=== PATIENT | female | born 1985 | race Caucasian/White ===

== ENCOUNTER 2020-06-08 21:32 | Inpatient (IN) | payer OTHER ==
[2020-06-08] MEDS ORDERED: Calcium Carbonate 500 MG ChewTAB PO PRN (22:22)
[2020-06-08] MEDS ORDERED: HYDROcodone/Acetaminophen 5/325 mg Tablet PO PRN (22:22)
[2020-06-08] MEDS ORDERED: HumaLOG 300 UNITS/3 ML VIAL SC PRN (22:22)
[2020-06-08] MEDS ORDERED: Acetaminophen 325 MG TAB PO PRN (22:22)
[2020-06-08] MEDS ORDERED: Dextrose 50% Abboject 50 ML SYRINGE SLOW IVP PRN (22:22)
[2020-06-08] MEDS ORDERED: Dextrose 5% in Water 1,000 ML IV PRN (22:22)
[2020-06-08] MEDS ORDERED: Lactated Ringer's 1,000 ML IV SCH (22:30)
[2020-06-08] MEDS ORDERED: Dicyclomine 10 MG CAP PO SCH (22:45)
[2020-06-08] MEDS ORDERED: Pantoprazole 40 MG VIAL IVP SCH (22:45)
[2020-06-08] MEDS ORDERED: Promethazine HCl 12.5 MG in Sodium Chloride 0.9% 50 ML IVPB PRN (22:50)
[2020-06-08] MEDS ORDERED: Metoclopramide HCl 10 MG/2 ML VIAL IVP PRN (22:50)
[2020-06-09] MEDS: metroNIDAZOLE 500 MG in Premix Bag 1 BAG IVPB SCH ×3 (01:19→14:41)
[2020-06-09] MEDS: Morphine 4 MG/ML VIAL SLOW IVP PRN ×3 (06:00→14:40)
[2020-06-09 06:27] LABS: #Eosinphils 0.2 10x3/uL (0.0-0.5); #Monocytes 0.7 10x3/uL (0.0-1.1); #Neutrophils 6.4 10x3/uL (1.5-8.4); %Basophils 0.4 % (0.0-2.0); %Eosinophils 1.6 % (0.0-6.0); %Lymphocytes 29.6 % (18.0-47.0); %Monocytes 6.2 % (0.0-10.0); %Neutrophils 61.3 % (40.0-75.0); Hemoglobin 11.3 g/dL (12.0-15.5); Mean Corpuscular HGB CONC 31.9 g/dL (32.0-36.0); Mean Corpuscular Hemoglobin 30.4 pg (27.0-33.0); Mean Corpuscular Volume 95.2 fl (81.6-98.3); Mean Platelet Volume 10.1 fl (7.4-10.4); Platelet Count 239 10x3/uL (150-450); RBC Distribution Width 12.5 % (11.5-14.5); Red Blood Cell (RBC) Count 3.72 10x6/uL (3.90-5.03); White Blood Cell (WBC) Count 10.4 10x3/uL (3.5-10.5)
[2020-06-09 06:53] LABS: ALT (SGPT) 19 U/L (8-55); AST (SGOT) 14 U/L (5-34); Albumin 3.4 g/dL (3.5-5.0); Alkaline Phosphatase 78 U/L (40-110); Anion Gap 14 mmol/L (10-20); BUN (Urea Nitrogen) 15 mg/dL (7.0-18.7); Bilirubin, Total 0.3 mg/dL (0.2-1.2); CRP (Inflammatory) 0.64 mg/dL (= or < 0.5); Calc. Creatinine Clearance 163 mL/min (70-130); Calcium 8.4 mg/dL (7.8-10.44); Carbon Dioxide 21 mmol/L (22-29); Chloride 109 mmol/L (98-107); Globulin 2.9 g/dL (2.4-3.5); Glucose 195 mg/dL (70-105); Lipase 21 U/L (8-78); Potassium 3.8 mmol/L (3.5-5.1); Protein, Total 6.3 g/dL (6.0-8.3); Sodium 140 mmol/L (136-145)
[2020-06-09 08:58] LABS: Hemoglobin A1c 7.8 % (4.0-6.0)
[2020-06-09] MEDS: Pantoprazole 40 MG VIAL IVP SCH ×2 (09:09→19:55)
[2020-06-09] MEDS: Metamucil PACK PO SCH (09:10)
[2020-06-09] MEDS: Dicyclomine 10 MG CAP PO SCH ×3 (09:10→22:25)
[2020-06-09 16:18] LABS: SARS-CoV-2 PCR by NAA Not Detected (NotDetected)
[2020-06-10] MEDS: Pantoprazole 40 MG VIAL IVP SCH ×2 (10:11→10:54)
[2020-06-10] MEDS: Dicyclomine 10 MG CAP PO SCH ×2 (10:11→14:25)
[2020-06-10] MEDS: Metamucil PACK PO SCH (10:12)
[2020-06-10] MEDS ORDERED: Acetaminophen 325 MG TAB PO SCH (12:00)
[2020-06-10] MEDS ORDERED: Ketorolac Tromethamine 30 MG/ML VIAL IVP SCH (12:00)
[2020-06-10 16:16] VITALS: BP 124/76; TEMP 98.8
== END 2020-06-10 17:40 | disposition home or self-care (01) | DRG 392 ==
LOC: CSHTELE 21:32
PROVIDERS: ADMIT Student in an Organized Health Care Education/Training Program; ATTEND Family Medicine
DX: R10.32 Left lower quadrant pain (principal); Z68.43 Body mass index [BMI] 50.0-59.9, adult; Z20.822 Contact with and (suspected) exposure to COVID-19; E66.01 Morbid (severe) obesity due to excess calories; M79.2 Neuralgia and neuritis, unspecified; I10 Essential (primary) hypertension; K52.9 Noninfective gastroenteritis and colitis, unspecified; G89.29 Other chronic pain; E11.65 Type 2 diabetes mellitus with hyperglycemia; D72.829 Elevated white blood cell count, unspecified; K57.30 Diverticulosis of large intestine without perforation or abscess without bleeding; Z91.041 Radiographic dye allergy status; Z88.2 Allergy status to sulfonamides; Z88.8 Allergy status to other drugs, medicaments and biological substances; Z91.018 Allergy to other foods; Z79.4 Long term (current) use of insulin; Z79.891 Long term (current) use of opiate analgesic; Z90.49 Acquired absence of other specified parts of digestive tract; Z90.710 Acquired absence of both cervix and uterus; Z87.891 Personal history of nicotine dependence; Z85.41 Personal history of malignant neoplasm of cervix uteri
CPT/HCPCS: 36415; 36416; 72146; 72148; 80053; 83036; 83630; 83690; 85025; 85652; 86140; 87045; 87046; 87324; 87427; 87449; 87635; C9113; J1885; J1956; J2270; J2550; U0003; U0005

== ENCOUNTER 2020-06-23 18:08 | Emergency (ER) | payer OTHER ==
[2020-06-23] MEDS ORDERED: Acetaminophen 500 MG TAB ONE (19:45)
== END 2020-06-23 20:04 | disposition home or self-care (01) ==
LOC: CSHERS 18:08
DX: I80.9 Phlebitis and thrombophlebitis of unspecified site (principal); I10 Essential (primary) hypertension; E11.9 Type 2 diabetes mellitus without complications; F17.210 Nicotine dependence, cigarettes, uncomplicated; Z79.899 Other long term (current) drug therapy

== ENCOUNTER 2021-10-17 20:42 | Emergency (ER) | payer OTHER ==
[2021-10-17] MEDS ORDERED: Morphine 4 MG/ML VIAL ONE ×2 (21:01→23:24)
[2021-10-17] MEDS ORDERED: Ondansetron PF 4 MG/2 ML Vial ONE (21:02)
[2021-10-17 21:09] LABS: #Basophils 0.1 10x3/uL (0.0-0.2); #Eosinphils 0.1 10x3/uL (0.0-0.5); #Monocytes 1.2 10x3/uL (0.0-1.1); #Neutrophils 10.4 10x3/uL (1.5-8.4); %Basophils 0.6 % (0.0-2.0); %Eosinophils 0.6 % (0.0-6.0); %Lymphocytes 26.9 % (18.0-47.0); %Monocytes 7.2 % (0.0-10.0); %Neutrophils 64.2 % (40.0-75.0); Hemoglobin 14.5 g/dL (12.0-15.5); Mean Corpuscular HGB CONC 34.6 g/dL (32.0-36.0); Mean Corpuscular Hemoglobin 31.3 pg (27.0-33.0); Mean Corpuscular Volume 90.5 fl (81.6-98.3); Mean Platelet Volume 10.3 fl (7.4-10.4); Platelet Count 300 10x3/uL (150-450); Red Blood Cell (RBC) Count 4.63 10x6/uL (3.90-5.03); White Blood Cell (WBC) Count 16.2 10x3/uL (3.5-10.5)
[2021-10-17 21:24] LABS: ALT (SGPT) 32 U/L (8-55); AST (SGOT) 22 U/L (5-34); Albumin 4.2 g/dL (3.5-5.0); Alkaline Phosphatase 99 U/L (40-110); Anion Gap 15 mmol/L (10-20); BUN (Urea Nitrogen) 16 mg/dL (7.0-18.7); Bilirubin, Total 0.5 mg/dL (0.2-1.2); Calc. Creatinine Clearance 0 mL/min (70-130); Calcium 9.4 mg/dL (7.8-10.44); Carbon Dioxide 22 mmol/L (22-29); Chloride 101 mmol/L (98-107); Estimated GFR 80; Globulin 3.2 g/dL (2.4-3.5); Glucose 450 mg/dL (70-105); Lipase 43 U/L (8-78); Potassium 4.3 mmol/L (3.5-5.1); Protein, Total 7.4 g/dL (6.0-8.3); Sodium 134 mmol/L (136-145)
[2021-10-17] MEDS ORDERED: diphenhydrAMINE 50 MG/ML VIAL ONE (21:50)
[2021-10-17 23:51] LABS: Bilirubin Neg (Negative); Blood, Urine Negative (Negative); Clarity Clear (Clear); Glucose, Urine (Dipstick) >=1000 mg/dL (Negative); Ketone, Urine Negative (Negative); Leukocyte Negative (Negative); Nitrite Negative (Negative); Protein, Urine (Dipstick) Negative (Neg-Trace); Specific Gravity, Urine 1.015 (1.002-1.036); Urobilinogen Normal mg/dL (Less than 2)
[2021-10-18 00:10] LABS: Lactic Acid 1.9 mmol/L (0.5-2.2)
[2021-10-18] MEDS ORDERED: Metoclopramide HCl 10 MG/2 ML VIAL ONE (00:11)
[2021-10-18] MEDS ORDERED: Morphine 4 MG/ML VIAL ONE (01:28)
== END 2021-10-18 02:32 | disposition short-term general hospital (02) ==
LOC: CSHERS 20:42
DX: R10.32 Left lower quadrant pain (principal); I10 Essential (primary) hypertension; E11.9 Type 2 diabetes mellitus without complications; Z87.891 Personal history of nicotine dependence
CPT/HCPCS: 74176; 80053; 81003; 83605; 83690; 85025; 96361; 96365; 96375; 96376; J1200; J2270; J2405; J2765

== ENCOUNTER 2021-11-25 19:17 | Observation (INO) | payer OTHER ==
[2021-11-25] MEDS ORDERED: Albuterol Sulfate 2.5 mg/3 ml Neb ONE (19:57)
[2021-11-25 20:22] LABS: #Basophils 0.1 10x3/uL (0.0-0.2); #Eosinphils 0.1 10x3/uL (0.0-0.5); #Monocytes 0.9 10x3/uL (0.0-1.1); #Neutrophils 10.5 10x3/uL (1.5-8.4); %Basophils 0.5 % (0.0-2.0); %Eosinophils 0.7 % (0.0-6.0); %Lymphocytes 27.5 % (18.0-47.0); %Monocytes 5.7 % (0.0-10.0); %Neutrophils 64.9 % (40.0-75.0); Hemoglobin 14.7 g/dL (12.0-15.5); Mean Corpuscular HGB CONC 34.8 g/dL (32.0-36.0); Mean Corpuscular Hemoglobin 31.3 pg (27.0-33.0); Mean Corpuscular Volume 90.2 fl (81.6-98.3); Mean Platelet Volume 10.3 fl (7.4-10.4); Platelet Count 327 10x3/uL (150-450); RBC Distribution Width 11.9 % (11.5-14.5); Red Blood Cell (RBC) Count 4.69 10x6/uL (3.90-5.03); White Blood Cell (WBC) Count 16.1 10x3/uL (3.5-10.5)
[2021-11-25] MEDS ORDERED: Ondansetron PF 4 MG/2 ML Vial ONE (20:25)
[2021-11-25] MEDS ORDERED: Morphine 4 MG/ML VIAL ONE ×2 (20:25→22:05)
[2021-11-25 20:36] LABS: ALT (SGPT) 22 U/L (8-55); AST (SGOT) 20 U/L (5-34); Albumin 4.4 g/dL (3.5-5.0); Alkaline Phosphatase 96 U/L (40-110); Anion Gap 17 mmol/L (10-20); BUN (Urea Nitrogen) 13 mg/dL (7.0-18.7); Bilirubin, Total 0.6 mg/dL (0.2-1.2); Calc. Creatinine Clearance 0 mL/min (70-130); Calcium 9.9 mg/dL (7.8-10.44); Carbon Dioxide 23 mmol/L (22-29); Chloride 98 mmol/L (98-107); Estimated GFR 89; Globulin 3.4 g/dL (2.4-3.5); Glucose 330 mg/dL (70-105); Lipase 32 U/L (8-78); Potassium 4.1 mmol/L (3.5-5.1); Protein, Total 7.8 g/dL (6.0-8.3); Sodium 134 mmol/L (136-145)
[2021-11-25 20:46] LABS: BHCG - Serum Negative (NEGATIVE); Pregs Control Background? CLEAR/WHITE (CLR/WHITE); Pregs Control Bar Appear? YES (CONTROL BAR)
[2021-11-25] MEDS ORDERED: Ketorolac Tromethamine 30 MG/ML VIAL ONE (22:06)
[2021-11-25] MEDS ORDERED: Piperacillin/Tazobactam 4.5 GM VIAL ONE (22:06)
[2021-11-25] MEDS ORDERED: Acetaminophen 325 MG TAB PO PRN (22:22)
[2021-11-25] MEDS ORDERED: Dextrose 5% in Water 1,000 ML IV PRN (22:22)
[2021-11-25] MEDS ORDERED: Calcium Carbonate 500 MG ChewTAB PO PRN (22:22)
[2021-11-25] MEDS ORDERED: Dextrose 50% Abboject 50 ML SYRINGE SLOW IVP PRN (22:22)
[2021-11-25] MEDS ORDERED: Zolpidem Tartrate 5 MG TAB PO PRN (22:22)
[2021-11-25] MEDS ORDERED: Guaifenesin DM 100-10/5 ML UDCUP PO PRN (22:22)
[2021-11-25 23:13] LABS: Lactic Acid 1.3 mmol/L (0.5-2.2)
[2021-11-26 00:32] LABS: SARS-CoV-2 NAA Rapid Test Not Detected (NotDetected)
[2021-11-26] MEDS ORDERED: Gabapentin 300 MG CAP PO SCH (02:30)
[2021-11-26] MEDS ORDERED: Lactated Ringer's 500 ML IV SCH (03:00)
[2021-11-26] MEDS ORDERED: Lantus 1000 UNITS/10 ML VIAL SC SCH (03:00)
[2021-11-26] MEDS ORDERED: Lactated Ringer's 1,000 ML IV SCH (03:00)
[2021-11-26] MEDS ORDERED: Gabapentin 300 MG CAP ONE (03:42)
[2021-11-26 03:49] LABS: #Basophils 0.1 10x3/uL (0.0-0.2); #Eosinphils 0.1 10x3/uL (0.0-0.5); #Monocytes 0.9 10x3/uL (0.0-1.1); %Basophils 0.4 % (0.0-2.0); %Monocytes 6.2 % (0.0-10.0); %Neutrophils 60.9 % (40.0-75.0); Hemoglobin 13.2 g/dL (12.0-15.5); Mean Corpuscular HGB CONC 34.2 g/dL (32.0-36.0); Mean Corpuscular Hemoglobin 31.2 pg (27.0-33.0); Mean Corpuscular Volume 91.3 fl (81.6-98.3); Mean Platelet Volume 10.4 fl (7.4-10.4); Platelet Count 287 10x3/uL (150-450); Red Blood Cell (RBC) Count 4.23 10x6/uL (3.90-5.03); White Blood Cell (WBC) Count 14.7 10x3/uL (3.5-10.5)
[2021-11-26 04:02] LABS: Anion Gap 16 mmol/L (10-20); BUN (Urea Nitrogen) 17 mg/dL (7.0-18.7); Calc. Creatinine Clearance 0 mL/min (70-130); Carbon Dioxide 21 mmol/L (22-29); Chloride 102 mmol/L (98-107); Estimated GFR 69; Glucose 318 mg/dL (70-105); Sodium 135 mmol/L (136-145)
[2021-11-26] MEDS ORDERED: Morphine 2 MG/ML VIAL ONE ×2 (04:05→09:40)
[2021-11-26] MEDS ORDERED: Racepinephrine 2.25% 0.5 ML NEB ONE (05:26)
[2021-11-26] MEDS ORDERED: tiZANidine HCl 4 MG TAB PO SCH (09:00)
[2021-11-26] MEDS: Morphine 2 MG/ML VIAL SLOW IVP PRN ×2 (09:50→15:42)
[2021-11-26] MEDS ORDERED: traMADol HCl 50 MG TAB ONE (10:35)
[2021-11-26] MEDS: Dicyclomine 10 MG CAP PO SCH ×3 (10:45→19:49)
[2021-11-26] MEDS: traMADol HCl 50 MG TAB PO SCH ×2 (10:45→22:50)
[2021-11-26 12:49] LABS: Hemoglobin A1c 10.6 % (4.0-6.0)
[2021-11-26] MEDS ORDERED: Ketorolac Tromethamine 30 MG/ML VIAL ONE (14:06)
[2021-11-26] MEDS: Ketorolac Tromethamine 30 MG/ML VIAL IVP SCH ×2 (14:15→21:07)
[2021-11-26] MEDS: Lidocaine 5% Patch TD SCH (14:15)
[2021-11-26] MEDS: Gabapentin 300 MG CAP PO SCH ×2 (15:45→21:09)
[2021-11-26] MEDS: tiZANidine HCl 4 MG TAB PO SCH ×2 (15:46→21:09)
[2021-11-26] MEDS: HYDROcodone/Acetaminophen 5/325 mg Tablet PO PRN (17:40)
[2021-11-26] MEDS: HumaLOG 300 UNITS/3 ML VIAL SC PRN (17:47)
[2021-11-26 18:06] VITALS: BMI 47.5
[2021-11-26] MEDS ORDERED: Gabapentin 400 MG CAP PO SCH (21:00)
[2021-11-27] MEDS: Transdermal Patch Removal TOP SCH
[2021-11-27] MEDS: Ketorolac Tromethamine 30 MG/ML VIAL IVP SCH ×4 (01:00→10:27)
[2021-11-27] MEDS: HumaLOG 300 UNITS/3 ML VIAL SC PRN ×3 (01:20→23:43)
[2021-11-27] MEDS: Morphine 2 MG/ML VIAL SLOW IVP PRN ×3 (01:51→18:26)
[2021-11-27] MEDS: Dicyclomine 10 MG CAP PO SCH ×3 (01:57→18:23)
[2021-11-27] MEDS: Lantus 1000 UNITS/10 ML VIAL SC SCH (08:29)
[2021-11-27] MEDS: Gabapentin 300 MG CAP PO SCH ×3 (08:30→20:49)
[2021-11-27] MEDS: traMADol HCl 50 MG TAB PO SCH ×2 (08:31→20:50)
[2021-11-27] MEDS: tiZANidine HCl 4 MG TAB PO SCH ×3 (08:31→20:49)
[2021-11-27] MEDS ORDERED: Lidocaine 5% Patch TD SCH (09:00)
[2021-11-27] MEDS ORDERED: FLU VACC QS2022-23(6MOS UP)/PF 60 MCG/0.5 ML SYRINGE IM ONE (09:00)
[2021-11-27] MEDS: Lidocaine 5% Patch TD SCH (14:22)
[2021-11-27] MEDS: HYDROcodone/Acetaminophen 5/325 mg Tablet PO PRN ×2 (14:22→22:33)
[2021-11-28] MEDS: Transdermal Patch Removal TOP SCH (00:20)
[2021-11-28] MEDS: Dicyclomine 10 MG CAP PO SCH ×2 (02:53→09:14)
[2021-11-28] MEDS: Lantus 1000 UNITS/10 ML VIAL SC SCH (05:27)
[2021-11-28] MEDS: Morphine 2 MG/ML VIAL SLOW IVP PRN (05:34)
[2021-11-28 06:52] LABS: #Eosinphils 0.1 10x3/uL (0.0-0.5); #Monocytes 0.4 10x3/uL (0.0-1.1); #Neutrophils 3.6 10x3/uL (1.5-8.4); %Basophils 0.5 % (0.0-2.0); %Eosinophils 1.4 % (0.0-6.0); %Lymphocytes 44.4 % (18.0-47.0); %Monocytes 5.4 % (0.0-10.0); %Neutrophils 47.8 % (40.0-75.0); Hemoglobin 12.8 g/dL (12.0-15.5); Mean Corpuscular HGB CONC 33.1 g/dL (32.0-36.0); Mean Corpuscular Hemoglobin 31.3 pg (27.0-33.0); Mean Corpuscular Volume 94.6 fl (81.6-98.3); Mean Platelet Volume 10.2 fl (7.4-10.4); Platelet Count 264 10x3/uL (150-450); RBC Distribution Width 11.9 % (11.5-14.5); Red Blood Cell (RBC) Count 4.09 10x6/uL (3.90-5.03); White Blood Cell (WBC) Count 7.6 10x3/uL (3.5-10.5)
[2021-11-28 07:00] LABS: Anion Gap 16 mmol/L (10-20); BUN (Urea Nitrogen) 12 mg/dL (7.0-18.7); Calc. Creatinine Clearance 167 mL/min (70-130); Carbon Dioxide 25 mmol/L (22-29); Chloride 106 mmol/L (98-107); Estimated GFR 89; Glucose 191 mg/dL (70-105); Potassium 3.9 mmol/L (3.5-5.1); Sodium 143 mmol/L (136-145)
[2021-11-28] MEDS: Gabapentin 300 MG CAP PO SCH (07:57)
[2021-11-28] MEDS: tiZANidine HCl 4 MG TAB PO SCH (07:58)
[2021-11-28] MEDS: traMADol HCl 50 MG TAB PO SCH (07:58)
[2021-11-28] MEDS: HYDROcodone/Acetaminophen 5/325 mg Tablet PO PRN (09:14)
[2021-11-28 10:13] VITALS: BP 141/90; TEMP 97.7
== END 2021-11-28 10:40 | disposition home or self-care (01) ==
LOC: CSHERS 19:17 → INTOOBSV 22:22 → CSHERHOLD 22:22 → UNDOADMIN 11-26 01:24 → CSHTELE 11-26 13:53
PROVIDERS: ADMIT Student in an Organized Health Care Education/Training Program; ATTEND Family Medicine
DX: R65.10 Systemic inflammatory response syndrome (SIRS) of non-infectious origin without acute organ dysfunction (principal); E87.20 Acidosis, unspecified; K52.9 Noninfective gastroenteritis and colitis, unspecified; K57.30 Diverticulosis of large intestine without perforation or abscess without bleeding; G89.29 Other chronic pain; R10.32 Left lower quadrant pain; E11.9 Type 2 diabetes mellitus without complications; E66.01 Morbid (severe) obesity due to excess calories; Z68.42 Body mass index [BMI] 45.0-49.9, adult; E11.65 Type 2 diabetes mellitus with hyperglycemia; I10 Essential (primary) hypertension; Z20.822 Contact with and (suspected) exposure to COVID-19; Z87.891 Personal history of nicotine dependence; Z90.49 Acquired absence of other specified parts of digestive tract; Z88.2 Allergy status to sulfonamides; Z88.1 Allergy status to other antibiotic agents; Z88.8 Allergy status to other drugs, medicaments and biological substances; Z79.4 Long term (current) use of insulin; Z79.899 Other long term (current) drug therapy
CPT/HCPCS: 36415; 36416; 72148; 74176; 80048; 80053; 83036; 83605; 83690; 84145; 84703; 85025; 96361; 96374; 96375; 96376; G0378; J1815; J1885; J2270; J2405; J2543; J7611; U0002

== ENCOUNTER 2022-01-27 00:40 | Emergency (ER) | payer OTHER ==
[2022-01-27] MEDS ORDERED: Morphine 4 MG/ML VIAL ONE (01:32)
[2022-01-27 01:33] LABS: #Basophils 0.1 10x3/uL (0.0-0.2); #Eosinphils 0.3 10x3/uL (0.0-0.5); #Monocytes 0.7 10x3/uL (0.0-1.1); #Neutrophils 7.8 10x3/uL (1.5-8.4); %Basophils 0.5 % (0.0-2.0); %Eosinophils 1.5 % (0.0-6.0); %Lymphocytes 31.3 % (18.0-47.0); %Monocytes 5.3 % (0.0-10.0); Hemoglobin 16.3 g/dL (12.0-15.5); Mean Corpuscular HGB CONC 35.1 g/dL (32.0-36.0); Mean Corpuscular Hemoglobin 31.3 pg (27.0-33.0); Mean Corpuscular Volume 89.3 fl (81.6-98.3); Platelet Count 340 10x3/uL (150-450); RBC Distribution Width 11.8 % (11.5-14.5); Red Blood Cell (RBC) Count 4.85 10x6/uL (3.90-5.03); White Blood Cell (WBC) Count 13.1 10x3/uL (3.5-10.5)
[2022-01-27] MEDS ORDERED: Metoclopramide HCl 10 MG/2 ML VIAL ONE (01:33)
[2022-01-27 01:51] LABS: ALT (SGPT) 33 U/L (8-55); AST (SGOT) 22 U/L (5-34); Albumin 4.2 g/dL (3.5-5.0); Alkaline Phosphatase 98 U/L (40-110); Anion Gap 16 mmol/L (10-20); BUN (Urea Nitrogen) 11 mg/dL (7.0-18.7); Bilirubin, Total 0.5 mg/dL (0.2-1.2); Calc. Creatinine Clearance 0 mL/min (70-130); Calcium 9.2 mg/dL (7.8-10.44); Carbon Dioxide 23 mmol/L (22-29); Chloride 101 mmol/L (98-107); Estimated GFR 103; Globulin 3.3 g/dL (2.4-3.5); Glucose 277 mg/dL (70-105); Magnesium 2.1 mg/dL (1.6-2.6); Potassium 3.8 mmol/L (3.5-5.1); Protein, Total 7.5 g/dL (6.0-8.3); Sodium 136 mmol/L (136-145)
[2022-01-27 03:37] LABS: BHCG - Serum Negative (NEGATIVE); Pregs Control Background? CLEAR/WHITE (CLR/WHITE); Pregs Control Bar Appear? YES (CONTROL BAR)
== END 2022-01-27 03:20 | disposition home or self-care (01) ==
LOC: CSHERS 00:40
DX: R10.32 Left lower quadrant pain (principal); I10 Essential (primary) hypertension; E11.9 Type 2 diabetes mellitus without complications; Z87.891 Personal history of nicotine dependence
CPT/HCPCS: 74176; 80053; 83735; 84703; 85025; 96374; 96375; J2270; J2765

== ENCOUNTER 2022-02-16 01:43 | Emergency (ER) | payer OTHER ==
[2022-02-16] MEDS ORDERED: HYDROcodone/Acetaminophen 5/325 mg Tablet ONE (02:14)
[2022-02-16] MEDS ORDERED: Ketorolac Tromethamine 30 MG/ML VIAL ONE (02:51)
== END 2022-02-16 03:21 | disposition home or self-care (01) ==
LOC: CSHERS 01:43
DX: S93.402A Sprain of unspecified ligament of left ankle, initial encounter (principal); S93.401A Sprain of unspecified ligament of right ankle, initial encounter; S43.401A Unspecified sprain of right shoulder joint, initial encounter; I10 Essential (primary) hypertension; E11.40 Type 2 diabetes mellitus with diabetic neuropathy, unspecified; Z79.4 Long term (current) use of insulin; Z79.899 Other long term (current) drug therapy; Z87.891 Personal history of nicotine dependence; W01.0XXA Fall on same level from slipping, tripping and stumbling without subsequent striking against object, initial encounter
CPT/HCPCS: 96372; J1885

== ENCOUNTER 2022-12-02 11:02 | Emergency (ER) | payer SELFPAY ==
[2022-12-02 12:09] LABS: #Basophils 0.1 10x3/uL (0.0-0.2); #Eosinphils 0.1 10x3/uL (0.0-0.5); #Monocytes 0.6 10x3/uL (0.0-1.1); #Neutrophils 9.4 10x3/uL (1.5-8.4); %Basophils 0.6 % (0.0-2.0); %Eosinophils 0.4 % (0.0-6.0); %Lymphocytes 23.3 % (18.0-47.0); %Monocytes 4.6 % (0.0-10.0); %Neutrophils 70.6 % (40.0-75.0); Hematocrit 45.4 % (34.9-44.5); Hemoglobin 15.3 g/dL (12.0-15.5); Mean Corpuscular HGB CONC 33.7 g/dL (32.0-36.0); Mean Corpuscular Hemoglobin 30.2 pg (27.0-33.0); Mean Corpuscular Volume 89.5 fl (81.6-98.3); Mean Platelet Volume 9.9 fl (7.4-10.4); Platelet Count 334 10x3/uL (150-450); Red Blood Cell (RBC) Count 5.07 10x6/uL (3.90-5.03); White Blood Cell (WBC) Count 13.2 10x3/uL (3.5-10.5)
[2022-12-02] MEDS ORDERED: Dicyclomine 20 MG TAB ONE (12:10)
[2022-12-02 12:36] LABS: BHCG - Serum Negative (NEGATIVE); Pregs Control Background? CLEAR/WHITE (CLR/WHITE); Pregs Control Bar Appear? YES (CONTROL BAR)
[2022-12-02 12:38] LABS: ALT (SGPT) 34 U/L (8-55); AST (SGOT) 23 U/L (5-34); Albumin 4.6 g/dL (3.5-5.0); Alkaline Phosphatase 85 U/L (40-110); Anion Gap 19 mmol/L (10-20); BUN (Urea Nitrogen) 10 mg/dL (7.0-18.7); Bilirubin, Total 0.4 mg/dL (0.2-1.2); Calc. Creatinine Clearance 0 mL/min (70-130); Calcium 10.2 mg/dL (7.8-10.44); Carbon Dioxide 19 mmol/L (22-29); Chloride 102 mmol/L (98-107); Estimated GFR 95; Globulin 3.6 g/dL (2.4-3.5); Glucose 279 mg/dL (70-105); Lipase 30 U/L (8-78); Potassium 4.4 mmol/L (3.5-5.1); Protein, Total 8.2 g/dL (6.0-8.3); Sodium 136 mmol/L (136-145)
== END 2022-12-02 12:24 | disposition left against medical advice (07) ==
LOC: CSHERS 11:02
DX: Z53.21 Procedure and treatment not carried out due to patient leaving prior to being seen by health care provider (principal)
CPT/HCPCS: 36416; 74176; 80053; 83690; 84703; 85025

== ENCOUNTER 2023-07-13 23:49 | Observation (INO) | payer BC, OTHER ==
[2023-07-14 00:13] VITALS: BMI 48.4
[2023-07-14] MEDS ORDERED: Ondansetron PF 4 MG/2 ML Vial IVP PRN (00:22)
[2023-07-14] MEDS ORDERED: Dextrose 5% in Water 1,000 ML IV PRN (00:22)
[2023-07-14] MEDS ORDERED: Calcium Carbonate 500 MG ChewTAB PO PRN (00:22)
[2023-07-14] MEDS ORDERED: Dextrose 50% Abboject 50 ML SYRINGE SLOW IVP PRN (00:22)
[2023-07-14] MEDS ORDERED: Acetaminophen 325 MG TAB PO PRN (00:22)
[2023-07-14] MEDS ORDERED: Glucagon 1 MG/ML KIT IM PRN (00:22)
[2023-07-14] MEDS ORDERED: traMADol HCl 50 MG TAB PO PRN (00:26)
[2023-07-14] MEDS: Lactated Ringer's 1,000 ML IV SCH (01:06)
[2023-07-14] MEDS: HumaLOG 300 UNITS/3 ML VIAL SC PRN (01:33)
[2023-07-14] MEDS: Gabapentin 300 MG CAP PO SCH ×2 (02:05→08:27)
[2023-07-14] MEDS: tiZANidine HCl 4 MG TAB PO SCH ×2 (02:06→08:27)
[2023-07-14] MEDS: Morphine 2 MG/ML VIAL SLOW IVP PRN (02:06)
[2023-07-14 03:31] LABS: #Basophils 0.04 10x3/uL (0.0-0.2); #Monocytes 0.11 10x3/uL (0.0-1.1); #Neutrophils 8.76 10x3/uL (1.5-8.4); %Basophils 0.4 % (0.0-2.0); %Lymphocytes 14.2 % (18.0-47.0); %Neutrophils 83.6 % (40.0-75.0); Hematocrit 42.4 % (34.9-44.5); Hemoglobin 14.7 g/dL (12.0-15.5); Mean Corpuscular HGB CONC 34.7 g/dL (32.0-36.0); Mean Corpuscular Hemoglobin 31.4 pg (27.0-33.0); Mean Corpuscular Volume 90.6 fl (81.6-98.3); Mean Platelet Volume 10.2 fl (7.4-10.4); Platelet Count 308 10x3/uL (150-450); RBC Distribution Width 11.9 % (11.5-14.5); Red Blood Cell (RBC) Count 4.68 10x6/uL (3.90-5.03); White Blood Cell (WBC) Count 10.5 10x3/uL (3.5-10.5)
[2023-07-14 03:57] LABS: Anion Gap 18 mmol/L (10-20); BUN (Urea Nitrogen) 13 mg/dL (7.0-18.7); Calc. Creatinine Clearance 177 mL/min (70-130); Calcium 9.5 mg/dL (7.8-10.44); Carbon Dioxide 19 mmol/L (22-29); Cardiac Risk 6.1 (Less than 4.5); Chloride 103 mmol/L (98-107); Cholesterol 232 mg/dl (< 200 Desired); Estimated GFR 95; Glucose 369 mg/dL (70-105); HDL Cholesterol 38 mg/dL (>60 Neg Risk); LDL Cholesterol, Calculated 171 mg/dL; Potassium 4.8 mmol/L (3.5-5.1); Sodium 135 mmol/L (136-145); Triglycerides 115 mg/dL (Less than 150)
[2023-07-14] MEDS: metroNIDAZOLE 500 MG in Premix 1 BAG IVPB SCH (06:05)
[2023-07-14 08:02] VITALS: BP 119/73; TEMP 97
[2023-07-14] MEDS: Lantus 1000 UNITS/10 ML VIAL SC SCH (08:26)
[2023-07-14] MEDS: Lisinopril 2.5 MG TAB PO SCH (08:27)
[2023-07-14] MEDS: Dicyclomine 10 MG CAP PO SCH (08:28)
[2023-07-14] MEDS: glipiZIDE XL 5 mg ER.TAB PO SCH (08:28)
[2023-07-14] MEDS ORDERED: cefTRIAXone\\ROCEPHIN 1 GM in Sodium Chloride 0.9% 100 ML IVPB SCH (09:00)
[2023-07-14] MEDS ORDERED: Lantus 1000 UNITS/10 ML VIAL SC SCH (09:00)
[2023-07-14 13:00] LABS: Hemoglobin A1c 10.8 % (4.0-6.0)
[2023-07-14] MEDS ORDERED: Enoxaparin 40 MG (0.4 mL) SYRINGE SC SCH (21:00)
== END 2023-07-14 11:35 | disposition home or self-care (01) ==
LOC: UNDOADMOB 23:49 → CSHTELE 23:49 → INTOOBSV 23:49 → CSHTELE 23:59
PROVIDERS: ADMIT Student in an Organized Health Care Education/Training Program; ATTEND Internal Medicine
DX: R10.32 Left lower quadrant pain (principal); R65.10 Systemic inflammatory response syndrome (SIRS) of non-infectious origin without acute organ dysfunction; E87.29 Other acidosis; I10 Essential (primary) hypertension; G89.4 Chronic pain syndrome; R19.7 Diarrhea, unspecified; E66.01 Morbid (severe) obesity due to excess calories; E11.65 Type 2 diabetes mellitus with hyperglycemia; Z91.041 Radiographic dye allergy status; Z88.8 Allergy status to other drugs, medicaments and biological substances; Z88.1 Allergy status to other antibiotic agents; Z88.2 Allergy status to sulfonamides; Z68.42 Body mass index [BMI] 45.0-49.9, adult; Z91.018 Allergy to other foods; Z79.84 Long term (current) use of oral hypoglycemic drugs; Z79.899 Other long term (current) drug therapy; Z90.710 Acquired absence of both cervix and uterus; Z90.49 Acquired absence of other specified parts of digestive tract; Z90.722 Acquired absence of ovaries, bilateral; Z87.891 Personal history of nicotine dependence
CPT/HCPCS: 36415; 36416; 80048; 80061; 83036; 85025; 86140; 96374; 96375; G0378; J1815; J2272; J7120